=== PATIENT | female | born 1970 | race Caucasian/White ===

== ENCOUNTER → 2016-09-28 | Outpatient (CLI) | payer OTHER ==
[~2016-09-28] MED LIST: ISOVUE-M 300 61% 15ML VIAL (Q9967) As Ordered ONE; LIDOCAINE 1% SDV INJ 30 ML VIAL As Ordered ONE; methylPREDNISolone SUSP 40 MG/ML (DEPO-medrol) VIAL (J1030) As Ordered ONE
--- NOTE | 2016-09-28 17:37 | REP ---
FLUOROSCOPIC GUIDED SPINAL INJECTION: The films were reviewed with Dr. Schaeffer. The patient has a history of neck pain. The portable C-ARM was provided in the OR by Dr. Saul for fluoroscopic guidance. 3 intraoperative fluoroscopic spot films were obtained for needle placement verification for cervical epidural injection. The films are on the PACS system and are available for review. 28 seconds of fluoroscopic time was utilized for this procedure. Reviewed by ASHLEY Espinosa 09/29/2016 09:07 AEdited and Signed by Brannon Schaeffer MD 09/29/2016 03:18 P
--- NOTE | 2016-10-04 00:19 | ECWPNPC ---
PATIENT NAME: LAMINE ARENAS : 1970 GENDER: FEMALE VISIT DATE: 09/28/2016 DISCHARGE DATE: 09/28/16 1446 VISIT LOCKED DATE TIME: PHYSICIAN: NAVEEN WILLIAMSON RESOURCE: NAVEEN WILLIAMSON REASON FOR APPOINTMENT 1. CE HISTORY OF PRESENT ILLNESS HISTORY OF PRESENT ILLNESS: PAIN THE PATIENT DESCRIBES THE PAIN... FALL RISK SCREENING: SCREENING :NO FALLS IN THE PAST YEAR CURRENT MEDICATIONS TAKING ZONISAMIDE 150 MG CAPSULE (PRIOR AUTH: RX REF#:[id number]) ORAL DAILY AT BEDTIME, NOTES: 09/27/162099 TAKING OMEPRAZOLE 40 MG CAPSULE DELAYED RELEASE (PRIOR AUTH: RX REF#:[id number]) ORAL ONCE A DAY, NOTES: 09/28/16729 TAKING MONTELUKAST SODIUM 10 MG TABLET (PRIOR AUTH: RX REF#:[id number]) ORAL ONCE A DAY, NOTES: 09/27/162099 TAKING SERTRALINE HCL 50 MG TABLET (PRIOR AUTH: RX REF#:[id number]) ORAL ONCE A DAY, NOTES: 09/28/16729 TAKING ALBUTEROL SULFATE (2.5 MG/3ML) 0.083% NEBULIZATION SOLUTION (PRIOR AUTH: RX REF#:[id number]) INHALATION 2 PUFFS WHEN NEEDED, NOTES: NONE TAKING PHENTERMINE HCL 30 MG CAPSULE 1 CAPSULE ORALLY ONCE A DAY, NOTES: 09/28/16729 TAKING MAXALT 10 MG TABLET 1 TABLET NEEDED ONE TIME ORALLY ONCE A DAY, NOTES: NONE TAKING ALBUTEROL SULFATE HFA AEROSOL SOLUTION 2 PUFFS NEEDED INHALATION PRN, NOTES: NONE MEDICATION LIST REVIEWED AND RECONCILED WITH THE PATIENT PAST MEDICAL HISTORY 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 NEW PATIENT PAIN DIARY TODAY'S VISITNOTES FROM 0-10, WHAT LEVEL IS YOUR PAIN TODAY?0 PAIN CLINIC PFS, CLERGY, PUBLIC HEALTH REFERRALS PFS REFERRAL NEEDED?NO CLERGY REFERRAL NEEDED?NO PUBLIC HEALTH REFERRAL NEEDED?NO WAS THE PROVIDER NOTIFIED OF ANY PERTINENT INFO?NO PFS REFERRAL NEEDED?NO CLERGY REFERRAL NEEDED?NO PUBLIC HEALTH REFERRAL NEEDED?NO WAS THE PROVIDER NOTIFIED OF ANY PERTINENT INFO?NO REVIEW OF SYSTEMS CONSTITUTIONAL: ANY CHANGE IN YOUR MEDICAL CONDITION? NO . CHILLS NO . FEVER NO . INFECTION: DO YOU HAVE NEW INFECTIONS? NO . DO YOU HAVE HISTORY OF MRSA? NO . MUSCULOSKELETAL: ANY NEW PATTERNS OF PAIN OR NUMBNESS? NO . GASTROENTEROLOGY: ANY NEW CHANGE IN BOWEL CONTROL? YES HAS NOTED LOOSE STOOLS AFTER PHYSICAL THERAPY SEESIONS X2 SESSIONS. NORMAL BOWEL PATTERN IS WEEKLY. . GENITOURINARY: ANY NEW CHANGE IN BLADDER CONTROL? NO . IS THERE A CHANCE YOU COULD BE ? NO . HEMATOLOGY/LYMPH: DO YOU TAKE ANY BLOOD THINNERS? (FOR EXAMPLE- COUMADIN, PLAVIX, AGGRENOX, PLATEL, PRADAXA, OR XARELTO) NO . WHEN WAS YOUR LAST DOSE? DATE: TIME: . NEUROLOGY: HAVE YOU FALLEN IN THE PAST 6 MONTHS? NO . ANY NEW EXTREMITY NUMBNESS OR WEAKNESS? NO . CARDIOLOGY: DO YOU HAVE A PACEMAKER OR DEFIBRILLATOR? NO . RESPIRATORY: HAVE YOU BEEN SICK IN THE PAST WEEK? NO . FEVER NO . FLU LIKE SYMPTOMS? NO . COUGH NO . INTEGUMENTARY: DO YOU HAVE ANY RASHES OR OPEN SORES? NO . ALLERGIC/IMMUNO: ARE YOU ALLERGIC TO SHELLFISH OR IV DYE? NO . ANY NEW ALLERGIES? NO . PSYCHIATRIC: DO YOU HAVE THOUGHTS OF HURTING YOURSELF OR SOMEONE ELSE? NO . ARE YOU ABUSED, NEGLECTED, OR IN AN UNSAFE ENVIRONMENT? NO . ENDOCRINOLOGY: ARE YOU DIABETIC? NO . OTHER: DO YOU NEED ANY PRESCRIPTIONS? NO . IF YES, PLEASE LIST: ____ . ANY NEW PROBLEMS WITH YOUR MEDICATIONS? NO . WHEN DID YOU LAST EAT? ____09/27/16 1930 . WHEN DID YOU LAST DRINK? ____09/28/16 0730 . WHAT DID YOU LAST DRINK? ____WATER/SIP OF COFFEE . NAME OF PERSON DRIVING YOU HOME? ____RANDY . DO YOU HAVE ANY OTHER QUESTIONS OR CONCERNS NO . REVIEWED BY: PROVIDER: . VITAL SIGNS WT 157 LBS, HT 59 IN, BMI 31.71 INDEX, BP 139/89 MM HG, HR 93 /MIN, RR 16 /MIN, TEMP 96.7 F, OXYGEN SAT % 98, NA INITIALS TL 1256, REVIEWED BY: MLF. ASSESSMENTS CERVICAL DISC DISORDER WITH RADICULOPATHY, CERVICOTHORACIC REGION - M50.13 (PRIMARY) PROCEDURES PN CERVICAL EPIDURAL PRE PROCEDURE DIAGNOSIS CERVICAL DISC DISORDER WITH RADICULOPATHY POST PROCEDURE DIAGNOSIS CERVICAL DISC DISORDER WITH RADICULOPATHY PROCEDURE CERVICAL EPIDURAL STEROID INJECTION UNDER FLUOROSCOPIC GUIDANCE SURGEON DR. NAVEEN WILLIAMSON GRADE TAMPER NONE ANESTHESIA LOCAL PRE PROCEDURE NOTE THE PATIENT HAS A HISTORY OF CHRONIC CERVICAL PAIN. I EVALUATE THE PATIENT AND REVIEWED THE CHART. I WENT OVER THE RISKS, ALTERNATIVES, AND BENEFITS ASSOCIATED WITH THIS PROCEDURE. THE PATIENT WOULD LIKE TO PROCEED AND GIVE CONSENT TO PERFORMED THE PROCEDURE. THE PATIENT DENIES UNEXPLAINABLE WEIGHT LOSS, FEVER, CHILLS, OR NEW CHANGES IN URINARY OR BOWEL CONTROL DESCRIPTION OF PROCEDURE THE PATIENT WAS BROUGHT TO THE PROCEDURE ROOM AND PLACED IN THE PRONE POSITION. THE CERVICOTHORACIC AREA WAS CLEANED WITH BETADINE SOLUTION AND DRAPED ASEPTICALLY. THE PROCEDURE WAS DONE UNDER STERILE CONDITIONS. I CHECKED LATERALITY AND THE LEVEL WHERE THE PROCEDURE WAS GOING TO BE PERFORMED WITH THE PATIENT AND THE SUPPORTING STAFF AT THE MOMENT OF THE TIME OUT IN THE PROCEDURE ROOM. UNDER FLUOROSCOPIC GUIDANCE, THE TARGET WAS SELECTED AT THE INTERLAMINAR LEVEL OF C7-T1. LIDOCAINE WAS USED TO NUMB THE SKIN AND THE SUBCUTANEOUS TISSUE BELOW IT. EPIDURAL TUOHY NEEDLE 17-GAUGE WAS ADVANCED UNDER FLUOROSCOPIC GUIDANCE AND FOLLOWING PATIENT FEEDBACK UNTIL THE EPIDURAL SPACE WAS REACHED 6 CM DEEP INTO THE SKIN BY THE LOSS OF RESISTANCE TECHNIQUE. ISOVUE M DYE 30%, 0.25 ML, WAS INJECTED SHOWING ADEQUATE SPREAD OF THE DYE. THEN, A SOLUTION OF 3 ML OF NORMAL SALINE WITH DEPO-MEDROL 60 MG WAS INJECTED SLOWLY FOLLOWING PATIENT FEEDBACK. THERE WAS NO EVIDENCE OF BLOOD, PARESTHESIA OR CEREBROSPINAL FLUID DURING THE PROCEDURE. THE PATIENT WAS SENT TO THE RECOVERY ROOM. THE PATIENT WAS MOVING THE EXTREMITIES AND DOING WELL. THERE WAS NO COMPLICATION DURING THE PROCEDURE. FLUOROSCOPY TIME WAS 28 SECONDS POST PROCEDURE NOTE THE PATIENT WILL BE SEEN IN A FOLLOW UP IN THE NEXT FEW WEEKS. INSTRUCTIONS WERE GIVEN, QUESTIONS WERE ANSWERED, AND THE PATIENT EXPRESSED UNDERSTANDING AND AGREES WITH THE PLAN DIAGNOSTIC IMAGING [facility] FLUORO GUIDE SPINE INJECTION (PAIN)[id number] PROCEDURE CODES 49849 CERVICAL/THORACIC W/ IMAGING 6045F RADXPS IN END [id number] PXD FOLLOW UP 3 WEEKS ELECTRONICALLY SIGNED BY NAVEEN WILLIAMSON MD ON 10/03/2016 AT 01:33 PM EST DISCLAIMER : THIS IS A VISIT SUMMARY EXTRACTED FROM THE [employer] CHART. IT IS NOT A COPY OF THE [employer] PROGRESS NOTE. LORELEI
== END ==
LOC: M PAIN 13:20
PROVIDERS: ATTEND Anesthesiology
DX: M50.13 Cervical disc disorder with radiculopathy, cervicothoracic region (principal); G89.29 Other chronic pain; Z79.899 Other long term (current) drug therapy; Z91.018 Allergy to other foods
CPT/HCPCS: 62321; J1030; Q9967

== ENCOUNTER → 2016-10-25 | Outpatient (CLI) | payer OTHER ==
--- NOTE | 2016-10-25 23:36 | ECWPNPC ---
PATIENT NAME: LAMINE ARENAS : 1970 GENDER: FEMALE VISIT DATE: 10/25/2016 DISCHARGE DATE: 10/25/16934 VISIT LOCKED DATE TIME: PHYSICIAN: AMINA PARKER RESOURCE: AMINA PARKER REASON FOR APPOINTMENT 1. POST PROCEDURE-NECK HISTORY OF PRESENT ILLNESS HISTORY OF PRESENT ILLNESS: PAIN THE PATIENT DESCRIBES THE PAIN... HERE FOR POST PROCEDURE F/U.HAD GATITO ON 09-28-16.REPORTS SIGNIFICANT REDUCTION IN PAIN.REPORTING IMPROVED ROJM NECK AND IMPROVED SLEEP SINCE INJECTIONS.RATING PAIN VAS 2/10.USES MUSCLE RELAXER PRN AT NIGHT BUT HAS NOT NEEDED.ATTENDING PT 2X WK AND NOW IS DOING STRENGTHENING EXCERSISES FOR LBP.HAVING DIFFICULTY AFFORDING COPAYS. FALL RISK SCREENING: SCREENING :NO FALLS IN THE PAST YEAR CURRENT MEDICATIONS TAKING ZONISAMIDE 150 MG CAPSULE (PRIOR AUTH: RX REF#:[id number]) ORAL DAILY AT BEDTIME, NOTES: 09/27/162099 TAKING OMEPRAZOLE 40 MG CAPSULE DELAYED RELEASE (PRIOR AUTH: RX REF#:[id number]) ORAL ONCE A DAY, NOTES: 09/28/16729 TAKING MONTELUKAST SODIUM 10 MG TABLET (PRIOR AUTH: RX REF#:[id number]) ORAL ONCE A DAY, NOTES: 09/27/162099 TAKING SERTRALINE HCL 50 MG TABLET (PRIOR AUTH: RX REF#:[id number]) ORAL ONCE A DAY, NOTES: 09/28/16729 TAKING ALBUTEROL SULFATE (2.5 MG/3ML) 0.083% NEBULIZATION SOLUTION (PRIOR AUTH: RX REF#:[id number]) INHALATION 2 PUFFS WHEN NEEDED, NOTES: NONE TAKING PHENTERMINE HCL 30 MG CAPSULE 1 CAPSULE ORALLY ONCE A DAY, NOTES: 09/28/16729 TAKING MAXALT 10 MG TABLET 1 TABLET NEEDED ONE TIME ORALLY ONCE A DAY, NOTES: NONE TAKING ALBUTEROL SULFATE HFA AEROSOL SOLUTION 2 PUFFS NEEDED INHALATION PRN, NOTES: NONE MEDICATION LIST REVIEWED AND RECONCILED WITH THE PATIENT PAST MEDICAL HISTORY 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 NEW PATIENT PAIN DIARY TODAY'S VISITNOTES FROM 0-10, WHAT LEVEL IS YOUR PAIN TODAY?0 PAIN CLINIC PFS, CLERGY, PUBLIC HEALTH REFERRALS PFS REFERRAL NEEDED?NO CLERGY REFERRAL NEEDED?NO PUBLIC HEALTH REFERRAL NEEDED?NO WAS THE PROVIDER NOTIFIED OF ANY PERTINENT INFO?NO PFS REFERRAL NEEDED?NO CLERGY REFERRAL NEEDED?NO PUBLIC HEALTH REFERRAL NEEDED?NO WAS THE PROVIDER NOTIFIED OF ANY PERTINENT INFO?NO REVIEW OF SYSTEMS CONSTITUTIONAL: ANY CHANGE IN YOUR MEDICAL CONDITION? NO . CHILLS NO . FEVER NO . INFECTION: DO YOU HAVE NEW INFECTIONS? NO . DO YOU HAVE HISTORY OF MRSA? NO . MUSCULOSKELETAL: ANY NEW PATTERNS OF PAIN OR NUMBNESS? NO . GASTROENTEROLOGY: ANY NEW CHANGE IN BOWEL CONTROL? YES, USE TO BE ONCE OR TWICE WEEKLY, NOW SINCE THERAPY HAS A BM WITH EACH THERAPY SESSION. . GENITOURINARY: ANY NEW CHANGE IN BLADDER CONTROL? NO . IS THERE A CHANCE YOU COULD BE ? NO . HEMATOLOGY/LYMPH: DO YOU TAKE ANY BLOOD THINNERS? (FOR EXAMPLE- COUMADIN, PLAVIX, AGGRENOX, PLATEL, PRADAXA, OR XARELTO) NO . WHEN WAS YOUR LAST DOSE? DATE: TIME: . NEUROLOGY: HAVE YOU FALLEN IN THE PAST 6 MONTHS? NO . ANY NEW EXTREMITY NUMBNESS OR WEAKNESS? NO . CARDIOLOGY: DO YOU HAVE A PACEMAKER OR DEFIBRILLATOR? NO . RESPIRATORY: HAVE YOU BEEN SICK IN THE PAST WEEK? NO . FEVER NO . FLU LIKE SYMPTOMS? NO . COUGH NO . INTEGUMENTARY: DO YOU HAVE ANY RASHES OR OPEN SORES? NO . ALLERGIC/IMMUNO: ARE YOU ALLERGIC TO SHELLFISH OR IV DYE? NO . ANY NEW ALLERGIES? NO . PSYCHIATRIC: DO YOU HAVE THOUGHTS OF HURTING YOURSELF OR SOMEONE ELSE? NO . ARE YOU ABUSED, NEGLECTED, OR IN AN UNSAFE ENVIRONMENT? NO . ENDOCRINOLOGY: ARE YOU DIABETIC? NO . OTHER: DO YOU NEED ANY PRESCRIPTIONS? NO . IF YES, PLEASE LIST: ____ . ANY NEW PROBLEMS WITH YOUR MEDICATIONS? NO . WHEN DID YOU LAST EAT? ____ . WHEN DID YOU LAST DRINK? ____ . WHAT DID YOU LAST DRINK? ____ . NAME OF PERSON DRIVING YOU HOME? ____ . DO YOU HAVE ANY OTHER QUESTIONS OR CONCERNS YES, COULD SHE GET A SEAT CUSHION RX? MAYBE A PAIN PATCH FOR BACK & NECK? DOES SHE STILL NEED TO KEEP DOING THERAPY? . REVIEWED BY: PROVIDER: AMINA DELACRUZ . VITAL SIGNS WT 154 LBS, HT 59 IN, BMI 31.10 INDEX, BP 139/89 MM HG, HR 103 /MIN, RR 16 /MIN, TEMP 98.0 F, OXYGEN SAT % 98%, NA INITIALS SC 08:51, REVIEWED BY: CM. EXAMINATION CERVICAL SPINE/NECK: RANGE OF MOTION OF NECK:FULL W REPORTS OF STIFFNESS AND DISCOMFORT W FLEXION AND EXTENSION OF NECK.. REFLEXES:2 PLUS BILATERALLY. VERTEBRAL SPINE TENDERNESS:TENDERNESS W PALPATION OVER CERVICAL SPINE AND CERVICAL PARASPINALS.. DIAGNOSTIC DATA-MRI [id number] SIZE DISC HERNIATION AT C3/4-RIGHT CENTRAL.THORACIC [id number]-REVIEWED. ASSESSMENTS CERVICAL DISC DISPLACEMENT - M50.20 (PRIMARY) LOW BACK PAIN - M54.5 LUMBAR FACET ARTHROPATHY - M12.88 TREATMENT CERVICAL DISC DISPLACEMENT START IBUPROFEN TABLET, 200 MG, 3, ORALLY, 3TAB BID, 30 DAY(S) CLINICAL NOTES: OTC TYLENOL ARTHRITIS 650MG 2TAB MIDDAY. TOPICAL ASPERCREME W LIDOCAINE TWICE DAILY., PATIENT WAS ADVISED TO START A WALKING PROGRAM TO STRENGTHEN LUMBAR PARASPINAL MUSCLES AND IMPROVE MOBILITY. THEY WERE ADVISED THAT THIS WILL IMPROVE WEIGHT LOSS AND ALSO DEPRESSION/FIBROMYALGIA SYMPTOMS. ADVISED TO WALK 10 MINUTES EVERY OTHER DAY ON A FLAT SURFACE. EMPHASIZED THE IMPORTANCE OF DOING THIS CONSISTANTLY AND NOT SPORATICALLY TO AVOID INJURY. STRONG ADVISED NOT TO DO MORE THAN 10 MINUTES EVERY OTHER DSY FOR THE FIRST 4 WEEKS. PROCEDURE CODES FA211 ESTABILISHED PATIENT [facility] CHARGE FOLLOW UP 6 WEEKS ELECTRONICALLY SIGNED BY NUBIA FRANCE ON 10/25/2016 AT 11:05 AM EST DISCLAIMER : THIS IS A VISIT SUMMARY EXTRACTED FROM THE [employer] CHART. IT IS NOT A COPY OF THE [employer] PROGRESS NOTE. LORELEI
== END ==
LOC: M PAIN 08:40
PROVIDERS: ATTEND Nurse Practitioner Family
DX: M50.20 Other cervical disc displacement, unspecified cervical region (principal); M54.5 Low back pain; M12.88 Other specific arthropathies, not elsewhere classified, other specified site; Z79.899 Other long term (current) drug therapy; K21.9 Gastro-esophageal reflux disease without esophagitis; J45.909 Unspecified asthma, uncomplicated; Z91.09 Other allergy status, other than to drugs and biological substances; Z91.018 Allergy to other foods

== ENCOUNTER 2017-05-04 09:41 | Emergency (ER) | payer OTHER ==
[~2017-05-04] VITALS: Ht 149.9 cm; Wt 71.7 kg
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
[2017-05-04] MEDS ORDERED: MOBI4TAB PO (11:20)
[2017-05-04 12:00] VITALS: BP 144/89
== END 2017-05-04 12:00 | disposition home or self-care (01) ==
LOC: M ED 09:41
DX: S50.11XA Contusion of right forearm, initial encounter (principal); Y04.2XXA Assault by strike against or bumped into by another person, initial encounter; Y92.89 Other specified places as the place of occurrence of the external cause; Y93.89 Activity, other specified; Y99.0 Civilian activity done for income or pay

== ENCOUNTER 2017-06-08 11:23 | Emergency (ER) | payer OTHER ==
[~2017-06-08] VITALS: Ht 149.9 cm; Wt 2.2 kg
[~2017-06-08 11:23] MED LIST changes: -ISOVUE-M 300 61% 15ML VIAL (Q9967) As Ordered ONE; -LIDOCAINE 1% SDV INJ 30 ML VIAL As Ordered ONE; +MOBI4TAB PO; -methylPREDNISolone SUSP 40 MG/ML (DEPO-medrol) VIAL (J1030) As Ordered ONE
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
[2017-06-08] MEDS ORDERED: CYCL10TA PO (12:51)
[2017-06-08] MEDS ORDERED: HYDR-3713 PO (12:51)
[2017-06-08 13:06] VITALS: BP 129/79
== END 2017-06-08 13:07 | disposition home or self-care (01) ==
LOC: M ED 11:23
DX: M54.12 Radiculopathy, cervical region (principal); S90.01XD Contusion of right ankle, subsequent encounter; Z87.891 Personal history of nicotine dependence; Y04.0XXD Assault by unarmed brawl or fight, subsequent encounter; Y92.89 Other specified places as the place of occurrence of the external cause; Y93.89 Activity, other specified; Y99.0 Civilian activity done for income or pay

== ENCOUNTER → 2017-06-16 | Outpatient (CLI) | payer OTHER ==
[~2017-06-16] MED LIST changes: +CYCL10TA PO; +HYDR-3713 PO
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
== END ==
LOC: M PAIN 13:45
PROVIDERS: ATTEND Nurse Practitioner Family
DX: M50.20 Other cervical disc displacement, unspecified cervical region (principal); J45.909 Unspecified asthma, uncomplicated; K21.9 Gastro-esophageal reflux disease without esophagitis; R35.0 Frequency of micturition; Z79.891 Long term (current) use of opiate analgesic; Z79.899 Other long term (current) drug therapy; Z91.018 Allergy to other foods

== ENCOUNTER → 2017-08-25 | Outpatient (CLI) | payer BC ==
[2017-08-25 07:00] LABS: BASO % 0.7 % (0.0-1.0); EOS # 0.2 10^3/uL (0.0-0.50); EOS % 4.2 % (0.0-3.0); IMMATURE GRANULOCYTE % 0.2 % (0-0); LYMPH # 2.4 10^3/uL (1.5-4.5); LYMPH % 43.4 % (24.0-44.0); MEAN CORPUSCULAR HGB CONC 33.1 g/dl (32.0-36.5); MEAN CORPUSCULAR VOLUME 87.6 fl (80.0-96.0); MONO # 0.4 10^3/uL (0.0-0.8); MONO % 6.8 % (0.0-5.0); NEUTROPHILS # 2.4 10^3/uL (1.8-7.7); NEUTROPHILS % 44.7 % (36.0-66.0); PLATELET COUNT, AUTOMATED 264 10^3/uL (150-450); RED CELL DISTRIBUTION WIDTH 12.8 % (11.5-14.5); WHITE BLOOD COUNT 5.4 10^3/uL (4.0-10.0)
[2017-08-25 07:36] LABS: ALBUMIN/GLOBULIN RATIO 1.11 (1.00-1.93); ALKALINE PHOSPHATASE 82 U/L (45-117); ALT/SGPT 26 U/L (12-78); ANION GAP 5 MEQ/L (8-16); AST/SGOT 15 U/L (7-37); BILIRUBIN,TOTAL 0.9 MG/DL (0.2-1.0); BLOOD UREA NITROGEN 14 MG/DL (7-18); CALCIUM LEVEL 9.1 MG/DL (8.5-10.1); CARBON DIOXIDE LEVEL 29 MEQ/L (21-32); CHLORIDE LEVEL 110 MEQ/L (98-107); CHOLESTEROL LEVEL 225 MG/DL (<200); CREATININE FOR GFR 0.63 MG/DL (0.55-1.02); GLOMERULAR FILTRATION RATE > 60.0 (>58); GLUCOSE, FASTING 97 MG/DL (70-105); POTASSIUM SERUM 4.3 MEQ/L (3.5-5.1); SODIUM LEVEL 144 MEQ/L (136-145); TOTAL PROTEIN 7.6 GM/DL (6.4-8.2); TRIGLYCERIDES LEVEL 78 MG/DL (<150)
== END ==
LOC: M LAB 06:27
PROVIDERS: ATTEND Nurse Practitioner Family
DX: F34.1 Dysthymic disorder (principal); Z13.220 Encounter for screening for lipoid disorders

== ENCOUNTER 2017-12-07 08:11 | Day surgery (SDC) | payer BC ==
[2017-12-07] MEDS: CEFUROXIME 1MG/0.1ML INTRACAMERAL INJ As Ordered (06:42)
[~2017-12-07 08:11] MED LIST changes: -CYCL10TA PO; -HYDR-3713 PO; +MIDAZOLAM INJ 2 MG/2 ML VIAL (J2250) As Ordered; -MOBI4TAB PO; +fentaNYL 100 MCG/2 ML INJECTION (J3010) As Ordered
[2017-12-07] MEDS ORDERED: LIDOCAINE 1% MDV 20ML VIAL SQ (08:30)
[2017-12-07] MEDS: PROPARACAINE 0.5% OPHTH SOL 15ML OS (08:38)
[2017-12-07] MEDS: PHENYLEPHRINE 2.5% OPHTH SOL 2ML OS (08:39)
[2017-12-07] MEDS: TROPICAMIDE 1% OPHTH SOLN 2ML OS (08:39)
[2017-12-07] MEDS: OFLOXACIN 0.3 % (OCUFLOX) OPTH SOL 5ML OS (08:39)
[2017-12-07] MEDS: POVIDONE-IODINE 5% OPHTH PREP SOL 30ML As Ordered (10:10)
[2017-12-07] MEDS: LIDOCAINE 0.75%/EPINEPHRINE 0.025% IN BSS 1ML SYR INTRACAMERAL (OR ONLY) As Ordered (10:10)
[2017-12-07] MEDS: DUOVISC (0.50ML VISCOAT/0.55ML PROVISC) OPHTH KIT As Ordered (10:10)
[2017-12-07] MEDS: BALANCED SALT IRRIGATION SOLUTION 500ML BAG (FOR OR EYE MACHINE) As Ordered (10:10)
[2017-12-07] MEDS ORDERED: ONDANSETRON 4MG/2ML VIAL (J2405) IV (10:45)
== END 2017-12-07 10:45 | disposition home or self-care (01) ==
LOC: M SDC 08:11
DX: H25.12 Age-related nuclear cataract, left eye (principal); H52.212 Irregular astigmatism, left eye; J45.909 Unspecified asthma, uncomplicated; K21.9 Gastro-esophageal reflux disease without esophagitis; Z92.21 Personal history of antineoplastic chemotherapy; Z79.51 Long term (current) use of inhaled steroids; Z79.899 Other long term (current) drug therapy
CPT/HCPCS: 66984

== ENCOUNTER → 2018-02-14 | Outpatient (CLI) | payer BC | LOC: M SLEEP HO 11:13 | DX: R40.0 Somnolence (principal); R06.83 Snoring; R06.89 Other abnormalities of breathing | CPT/HCPCS: G0399 ==

== ENCOUNTER → 2018-05-14 | Outpatient (CLI) | payer BC ==
[2018-05-14 08:35] LABS: GLUCOSE, FASTING 90 MG/DL (70-100)
[2018-05-14 09:29] LABS: 1 HR GLUCOSE 112 MG/DL (LESS THAN 199)
[2018-05-14 10:26] LABS: 2 HR GLUCOSE 100 MG/DL (LESS THAN 140)
== END ==
LOC: M LAB 07:50
DX: Z01.812 Encounter for preprocedural laboratory examination (principal); E66.01 Morbid (severe) obesity due to excess calories; Z68.42 Body mass index [BMI] 45.0-49.9, adult
CPT/HCPCS: 82951

== ENCOUNTER → 2018-08-29 | Outpatient (CLI) | payer BC ==
[2018-08-29 14:26] LABS: BASO % 0.6 % (0.0-1.0); EOS # 0.3 10^3/uL (0.0-0.50); HEMATOCRIT 37.8 % (36.0-47.0); HEMOGLOBIN 12.2 g/dl (12.0-15.5); IMMATURE GRANULOCYTE % 0.2 % (0-3.0); LYMPH # 2.4 10^3/uL (1.5-4.5); LYMPH % 39.3 % (24.0-44.0); MEAN CORPUSCULAR HEMOGLOBIN 28.9 pg (27.0-33.0); MEAN CORPUSCULAR HGB CONC 32.3 g/dl (32.0-36.5); MEAN CORPUSCULAR VOLUME 89.6 fl (80.0-96.0); MONO # 0.6 10^3/uL (0.0-0.8); MONO % 9.5 % (0.0-5.0); NEUTROPHILS # 2.9 10^3/uL (1.8-7.7); NEUTROPHILS % 46.4 % (36.0-66.0); PLATELET COUNT, AUTOMATED 224 10^3/uL (150-450); RED BLOOD COUNT 4.22 10^6/uL (4.00-5.40); RED CELL DISTRIBUTION WIDTH 14.1 % (11.5-14.5); WHITE BLOOD COUNT 6.2 10^3/uL (4.0-10.0)
[2018-08-29 14:30] LABS: HEMATOCRIT 37.8 % (36.0-47.0)
[2018-08-29 15:19] LABS: ALBUMIN 4.1 GM/DL (3.2-5.2); ALBUMIN/GLOBULIN RATIO 1.32 (1.00-1.93); ALKALINE PHOSPHATASE 87 U/L (45-117); ALT/SGPT 23 U/L (12-78); ANION GAP 8 MEQ/L (8-16); AST/SGOT 18 U/L (7-37); BILIRUBIN,TOTAL 0.7 MG/DL (0.2-1.0); BLOOD UREA NITROGEN 10 MG/DL (7-18); CARBON DIOXIDE LEVEL 28 MEQ/L (21-32); CHLORIDE LEVEL 107 MEQ/L (98-107); CREATININE FOR GFR 0.44 MG/DL (0.55-1.30); FERRITIN 28 NG/ML (8-252); GLOMERULAR FILTRATION RATE > 60.0 (>58); GLUCOSE, FASTING 80 MG/DL (70-100); IRON (FE) 42 UG/DL (50-170); MAGNESIUM LEVEL 1.8 MG/DL (1.8-2.4); PERCENT SATURATION 13.6 % (13.2-45.0); PHOSPHORUS LEVEL 2.5 MG/DL (2.5-4.9); POTASSIUM SERUM 4.3 MEQ/L (3.5-5.1); SODIUM LEVEL 143 MEQ/L (136-145); TOTAL IRON BINDING CAPACITY 308 UG/DL (250-450); TOTAL PROTEIN 7.2 GM/DL (6.4-8.2)
[2018-08-29 15:27] LABS: TOTAL 25(OH) VITAMIN D 37.6 NG/ML (30.0-100.0); VITAMIN B12 LEVEL 1544 PG/ML (247-911)
[2018-08-29 16:06] LABS: ESTIMATED AVERAGE GLUCOSE 97 MG/DL (60-110)
[2018-08-31 11:28] LABS: PRETREATED FOLATE FOR RBCFOL 11.2 NG/ML; RBC FOLATE 622 NG/ML (280-791)
[2018-09-02 00:06] LABS: VITAMIN B1 LEVEL WHOLE BLOOD 103.9 nmol/L (66.5-200.0)
== END ==
LOC: M LAB 13:38
DX: K91.2 Postsurgical malabsorption, not elsewhere classified (principal); E55.9 Vitamin D deficiency, unspecified; Z98.84 Bariatric surgery status
CPT/HCPCS: 83550

== ENCOUNTER 2018-10-08 09:25 | Emergency (ER) | payer BC, SELFPAY ==
[~2018-10-08] VITALS: Ht 149.9 cm; Wt 63.6 kg
[~2018-10-08 09:25] MED LIST changes: +AMOX875T2 PO; +BIOT10008 PO; +CYCL10TA PO; +GABA-843 PO; +HYDR-3713 PO; -MIDAZOLAM INJ 2 MG/2 ML VIAL (J2250) As Ordered; +MOBI4TAB PO; +MULT1TAB10 PO; +OMEP40CA2 PO; +RIZA10TA2 PO; +SING10TA32 PO; +TIZA4CAP PO; +VENTAER INH; +VITA100L PO; +VITA400C7 PO; +ZOLO50TA PO; +ZONI100C2 PO; -fentaNYL 100 MCG/2 ML INJECTION (J3010) As Ordered
[2018-10-08] MEDS ORDERED: SIMV40TA2 PO (09:38)
[2018-10-08] MEDS ORDERED: FAMO1TAB11 PO (09:38)
[2018-10-08 09:59] LABS: BASO # 0.1 10^3/uL (0.0-0.2); BASO % 0.5 % (0.0-1.0); EOS # 0.2 10^3/uL (0.0-0.50); EOS % 1.8 % (0.0-3.0); HEMATOCRIT 43.9 % (36.0-47.0); HEMOGLOBIN 14.2 g/dl (12.0-15.5); LYMPH % 22.8 % (24.0-44.0); MEAN CORPUSCULAR HGB CONC 32.3 g/dl (32.0-36.5); MEAN CORPUSCULAR VOLUME 89.6 fl (80.0-96.0); MONO # 0.7 10^3/uL (0.0-0.8); MONO % 5.1 % (0.0-5.0); NEUTROPHILS # 9.2 10^3/uL (1.8-7.7); NEUTROPHILS % 69.5 % (36.0-66.0); PLATELET COUNT, AUTOMATED 260 10^3/uL (150-450); WHITE BLOOD COUNT 13.2 10^3/uL (4.0-10.0)
[2018-10-08 10:12] LABS: INR 1.03; PROTHROMBIN TIME 13.6 SECONDS (12.1-14.4)
[2018-10-08 10:29] LABS: ALBUMIN 4.1 GM/DL (3.2-5.2); ALT/SGPT 26 U/L (12-78); BILIRUBIN,DIRECT 0.2 MG/DL (0.0-0.2); BILIRUBIN,TOTAL 0.9 MG/DL (0.2-1.0); BLOOD UREA NITROGEN 10 MG/DL (7-18); CALCIUM LEVEL 9.7 MG/DL (8.5-10.1); CARBON DIOXIDE LEVEL 26 MEQ/L (21-32); CHLORIDE LEVEL 101 MEQ/L (98-107); CREATININE FOR GFR 0.43 MG/DL (0.55-1.30); GLOMERULAR FILTRATION RATE > 60.0 (>58); GLUCOSE, FASTING 135 MG/DL (70-100); LIPASE 80 U/L (73-393); POTASSIUM SERUM 3.5 MEQ/L (3.5-5.1); SODIUM LEVEL 141 MEQ/L (136-145); TOTAL PROTEIN 7.5 GM/DL (6.4-8.2)
[2018-10-08] MEDS ORDERED: MORPHINE 2 MG/ML 1ML SYRINGE (J2270) IV ONE (10:30)
[2018-10-08] MEDS ORDERED: METOCLOPRAMIDE INJ 10MG/2ML VIAL (J2765) IV ONE (10:30)
[2018-10-08] MEDS ORDERED: NS 1,000 ML IV ONE ×2 (11:00→15:15)
[2018-10-08] MEDS ORDERED: ONDANSETRON 4MG/2ML VIAL (J2405) IV ONE ×2 (11:00→16:45)
[2018-10-08] MEDS: MORPHINE 4 MG/ML 1ML VIAL/SYRINGE (J2270) IV PRN ×2 (11:17→12:05)
[2018-10-08] MEDS: GASTROGRAFIN SOLUTION 30ML PO SCH ×2 (11:32→11:45)
[2018-10-08] MEDS ORDERED: ISOVUE-370 76% 100ML VIAL (Q9967) As Ordered ONE (12:32)
[2018-10-08] MEDS: HYDROMORPHONE HCL 0.5 MG/ 0.5 ML SYRINGE (J1170 PER 1) IV PRN ×2 (12:40→13:28)
[2018-10-08] MEDS ORDERED: PIPERACILLIN/TAZOBACTAM SOD 3.375 GM in D5W MINI-BAG PLUS 50 ML IV ONE (13:00)
--- NOTE | 2018-10-08 13:52 | REP ---
CT ABDOMEN AND PELVIS WITH IV AND ORAL CONTRAST: HISTORY: Abdomen pain. COMPARISON STUDY: October 30, 2014. CT CONTRAST DOSE: 100 mL of intravenous Isovue [address] FINDINGS: Preliminary digital agency operator radiograph is unremarkable. The lung bases are clear. The liver and the spleen are normal in size homogeneous in texture. There is a small quantity of perisplenic fluid. There is one tiny air bubble in the fluid along the posterolateral aspect of the spleen. There are scattered areas of pneumoperitoneum in the upper abdomen. The largest collection of air is anterior to the left lobe of the liver. There is also a fairly large collection of air just above the proximal gastric jejunostomy under the left hemidiaphragm. The patient is status post gastric bypass procedure. By history, this was July 2018. Today's finding of free air in the upper abdomen implies a perforation, likely related to marginal ulcer or other lesion at the proximal gastric jejunostomy. The distal jejunostomy loop shows some mural thickening and adjacent inflammation as well. No free air is noted in this portion of the abdomen however. No evidence of obstruction. There is a small quantity of free fluid in the cul-de-sac. Uterus is surgically absent. Urinary bladder is unremarkable. No abdominal wall defect is seen. IMPRESSION: Moderate amount of upper abdominal free air indicates bowel perforation. The patient status post gastric bypass. The upper abdominal free air and free fluid. Pattern suggests the possibility of upper gastrointestinal perforation and possibly related to gastrojejunostomy. Findings were telephoned to Dr. Funk at the time of this dictation. Electronically Signed by Terry Grande MD 10/08/2018 08:14 P
[2018-10-08] MEDS ORDERED: NS 1,000 ML IV SCH (13:55)
[2018-10-08] MEDS ORDERED: HYDROMORPHONE HCL 0.5 MG/ 0.5 ML SYRINGE (J1170 PER 1) IV ONE ×2 (14:45→16:30)
--- NOTE | 2018-10-08 14:51 | ECGEPIP ---
Stationary ECG Study [facility] - ED Test Date: 2018-10-08 Pat Name: LAMINE ARENAS Department: Room: - Gender: F [employer] Swim Coach: phoebe : 1970 Requested By: Belen Obregon Order Number: [id number] Reading MD: Belen Obregon Measurements Intervals [place] Rate: 82 P: 59 [place]: 92 QRS: 59 QRSD: 82 T: 37 QT: 389 QTc: 456 Interpretive Statements SINUS RHYTHM WITH SHORT [place] INTERVAL NONSPECIFIC T-WAVE ABNORMALITY NO PRIOR FOR COMPARISON Electronically Signed On 10-08-2018 14:51:28 EST by Belen Obregon
[2018-10-08] MEDS ORDERED: PANTOPRAZOLE 40MG INJ (PROTONIX) (C9113) IV ONE (15:15)
[2018-10-08] MEDS ORDERED: FLUCONAZOLE 200 MG in APPROPRIATE DILUENT 1 EA IV ONE (16:00)
[2018-10-08 16:40] VITALS: BP 112/57
== END 2018-10-08 16:52 | disposition short-term general hospital (02) ==
LOC: M ED 09:25
DX: K63.1 Perforation of intestine (nontraumatic) (principal); Z98.84 Bariatric surgery status
CPT/HCPCS: 74177; 80048; 80076; 83605; 83690; 85025; 85610; 86850; 86900; 86901; 93005; 93041; 96361; 96374; 96375; 96376; 99285; C9113; J1170; J2270; J2405; J2543; J2765; Q9963; Q9967

== ENCOUNTER 2018-10-23 11:59 | Emergency (ER) | payer SELFPAY ==
[~2018-10-23] VITALS: Ht 149.9 cm; Wt 59.1 kg
[~2018-10-23 11:59] MED LIST changes: +FAMO1TAB11 PO; +SIMV40TA2 PO
[2018-10-23 12:41] LABS: BASO # 0.1 10^3/uL (0.0-0.2); BASO % 0.6 % (0.0-1.0); EOS # 0.2 10^3/uL (0.0-0.50); EOS % 2.2 % (0.0-3.0); HEMATOCRIT 42.4 % (36.0-47.0); HEMOGLOBIN 13.7 g/dl (12.0-15.5); LYMPH # 1.7 10^3/uL (1.5-4.5); LYMPH % 18.8 % (24.0-44.0); MEAN CORPUSCULAR HEMOGLOBIN 28.8 pg (27.0-33.0); MEAN CORPUSCULAR HGB CONC 32.3 g/dl (32.0-36.5); MEAN CORPUSCULAR VOLUME 89.3 fl (80.0-96.0); MONO # 0.9 10^3/uL (0.0-0.8); MONO % 9.9 % (0.0-5.0); NEUTROPHILS # 6.1 10^3/uL (1.8-7.7); NEUTROPHILS % 68.2 % (36.0-66.0); PLATELET COUNT, AUTOMATED 408 10^3/uL (150-450); RED BLOOD COUNT 4.75 10^6/uL (4.00-5.40)
[2018-10-23 13:03] LABS: INR 1.1; PARTIAL THROMBOPLASTIN TIME 28.3 SECONDS (25.4-37.6); PROTHROMBIN TIME 14.3 SECONDS (12.1-14.4)
[2018-10-23 13:07] LABS: ALBUMIN 3.4 GM/DL (3.2-5.2); ALT/SGPT 29 U/L (12-78); BILIRUBIN,DIRECT 0.1 MG/DL (0.0-0.2); BILIRUBIN,TOTAL 0.4 MG/DL (0.2-1.0); BLOOD UREA NITROGEN 12 MG/DL (7-18); CALCIUM LEVEL 9.3 MG/DL (8.5-10.1); CARBON DIOXIDE LEVEL 23 MEQ/L (21-32); CHLORIDE LEVEL 105 MEQ/L (98-107); CREATININE FOR GFR 0.45 MG/DL (0.55-1.30); GLOMERULAR FILTRATION RATE > 60.0 (>58); GLUCOSE, FASTING 89 MG/DL (70-100); LIPASE 126 U/L (73-393); POTASSIUM SERUM 3.6 MEQ/L (3.5-5.1); SODIUM LEVEL 140 MEQ/L (136-145); TOTAL PROTEIN 7.8 GM/DL (6.4-8.2)
[2018-10-23] MEDS ORDERED: NS 1,000 ML IV SCH (14:21)
[2018-10-23] MEDS ORDERED: MORPHINE 4 MG/ML 1ML VIAL/SYRINGE (J2270) IV PRN (14:30)
[2018-10-23] MEDS ORDERED: ONDANSETRON 4MG/2ML VIAL (J2405) IV ONE (14:30)
[2018-10-23] MEDS: GASTROGRAFIN SOLUTION 30ML PO SCH ×2 (14:49→15:25)
[2018-10-23] MEDS ORDERED: ISOVUE-370 76% 100ML VIAL (Q9967) As Ordered ONE (16:20)
--- NOTE | 2018-10-23 16:50 | REP ---
Clinical: Acute lower abdominal pain. Technique: Axial contrast enhanced images from the lung bases to the pubic symphysis using oral (per protocol) and 100 ml Isovue 370 intravenous contrast material with coronal and sagittal re-formations. Comparison: 10/08/2018. Findings: The patient is noted to be status post gastric bypass surgery and the previously identified pneumoperitoneum has completely resolved. Mucosal thickening involving the entire colon suggests a pancolitis. There is no evidence for bowel obstruction, significant ascites, or drainable collection/abscess. Terminal ileum and small bowel appears normal. Evidence for gastric bypass surgery in the left upper quadrant appears intact. Liver, spleen, pancreas, gallbladder, bilateral adrenal glands and kidneys are normal. Pelvis demonstrates normal bladder and evidence of prior hysterectomy. No ascites. No free air. No adenopathy. Abdominal aorta without aneurysm or dissection. Musculoskeletal structures are intact. Lung bases are clear. Impression: 1. Findings most compatible with acute pancolitis and correlation is recommended. 2. Previously identified pneumoperitoneum has resolved. 3. Evidence of prior gastric bypass surgery and hysterectomy. Electronically Signed by Paolo Floyd MD 10/23/2018 04:41 P
[2018-10-23 19:00] VITALS: BP 108/78
[2018-10-23] MEDS ORDERED: FLAG500T PO (19:09)
[2018-10-23] MEDS ORDERED: metroNIDAZOLE (FLAGYL) 500 MG TAB PO ONE (20:00)
== END 2018-10-23 19:26 | disposition home or self-care (01) ==
LOC: M ED 11:59
DX: A04.72 Enterocolitis due to Clostridium difficile, not specified as recurrent (principal); J45.909 Unspecified asthma, uncomplicated; K21.9 Gastro-esophageal reflux disease without esophagitis; E78.5 Hyperlipidemia, unspecified; Z98.84 Bariatric surgery status
CPT/HCPCS: 74177; 80048; 80076; 81001; 83690; 85025; 85610; 85730; 86850; 86900; 86901; 87088; 87186; 87507; 93041; 96374; 96375; 99285; J2270; J2405; Q9963; Q9967

== ENCOUNTER → 2018-11-16 | Outpatient (CLI) | payer BC ==
[~2018-11-16] MED LIST changes: +FLAG500T PO
[2018-11-16 12:59] LABS: BASO # 0.1 10^3/uL (0.0-0.2); BASO % 0.7 % (0.0-1.0); EOS # 0.2 10^3/uL (0.0-0.50); EOS % 2.1 % (0.0-3.0); HEMATOCRIT 38.9 % (36.0-47.0); HEMOGLOBIN 12.4 g/dl (12.0-15.5); LYMPH # 2.3 10^3/uL (1.5-4.5); LYMPH % 26.3 % (24.0-44.0); MEAN CORPUSCULAR HEMOGLOBIN 28.2 pg (27.0-33.0); MEAN CORPUSCULAR HGB CONC 31.9 g/dl (32.0-36.5); MEAN CORPUSCULAR VOLUME 88.6 fl (80.0-96.0); MONO # 0.9 10^3/uL (0.0-0.8); MONO % 10.2 % (0.0-5.0); NEUTROPHILS # 5.3 10^3/uL (1.8-7.7); NEUTROPHILS % 60.4 % (36.0-66.0); PLATELET COUNT, AUTOMATED 214 10^3/uL (150-450); RED BLOOD COUNT 4.39 10^6/uL (4.00-5.40); WHITE BLOOD COUNT 8.8 10^3/uL (4.0-10.0)
[2018-11-16 13:27] LABS: APPEARANCE, URINE HAZY (CLEAR); BACTERIA, URINE AUTO NEGATIVE (NEGATIVE); BILIRUBIN, URINE AUTO NEGATIVE (NEGATIVE); BLOOD, URINE BLOOD NEGATIVE (NEGATIVE); CALCIUM OXALATE CRYSTALS MODERATE; COLOR, URINE YELLOW (YELLOW); GLUCOSE, URINE (UA) AUTO NEGATIVE (NEGATIVE); KETONE, URINE AUTO 2+ mg/dL (NEGATIVE); LEUKOCYTE ESTERASE, URINE AUTO 1+ (NEGATIVE); MUCUS, URINE LARGE (NEGATIVE); NITRITE, URINE AUTO NEGATIVE (NEGATIVE); PROTEIN, URINE AUTO NEGATIVE (NEGATIVE); RBC, URINE AUTO 9 /HPF (0-3); SPECIFIC GRAVITY URINE AUTO 1.023 (1.002-1.035); SQUAMOUS EPITHELIAL CELL UR AU 2 /HPF (0-6); UROBILINOGEN, URINE AUTO 0.2 mg/dL (0.0-2.0); WBC, URINE AUTO 26 /HPF (0-3)
== END ==
LOC: M WUC 09:53
PROVIDERS: ATTEND Nurse Practitioner Family
DX: N39.0 Urinary tract infection, site not specified (principal)

== ENCOUNTER → 2018-12-06 | Outpatient (REF) | payer BC ==
[2018-12-06 12:54] LABS: APPEARANCE, URINE CLEAR (CLEAR); BACTERIA, URINE AUTO NEGATIVE (NEGATIVE); BILIRUBIN, URINE AUTO NEGATIVE (NEGATIVE); BLOOD, URINE BLOOD NEGATIVE (NEGATIVE); CALCIUM OXALATE CRYSTALS LARGE; COLOR, URINE AMBER (YELLOW); GLUCOSE, URINE (UA) AUTO NEGATIVE (NEGATIVE); KETONE, URINE AUTO 1+ mg/dL (NEGATIVE); LEUKOCYTE ESTERASE, URINE AUTO 1+ (NEGATIVE); MUCUS, URINE LARGE (NEGATIVE); NITRITE, URINE AUTO NEGATIVE (NEGATIVE); PROTEIN, URINE AUTO 1+ mg/dL (NEGATIVE); RBC, URINE AUTO 2 /HPF (0-3); SPECIFIC GRAVITY URINE AUTO 1.021 (1.002-1.035); SQUAMOUS EPITHELIAL CELL UR AU 2 /HPF (0-6); WBC, URINE AUTO 19 /HPF (0-3)
== END ==
LOC: M LAB REF 12:21
PROVIDERS: ATTEND Nurse Practitioner Family
DX: N39.0 Urinary tract infection, site not specified (principal)

== ENCOUNTER → 2018-12-11 | Outpatient (CLI) | payer BC ==
[~2018-12-11] MED LIST changes: +MISO200T56 PO; +ONDA4TAB6 PO; +SUCR1TAB56 PO
--- NOTE | 2018-12-12 05:22 | REP ---
Clinical: Urinary tract infection. Technique: Real time elam scale ultrasound examination using curved array transducer. Findings: Bilateral kidneys are normal in contour, size, echogenicity, and reniform shape without hydronephrosis, nephrolithiasis, cystic or renal mass lesion. No perinephric fluid collection. Right kidney measures 11.0 x 6.5 x 4.9 cm. Left kidney measures 9.8 x 6.0 x 5.3 cm. Bladder is under distended. Impression: Normal renal ultrasound. Electronically Signed by Paolo Floyd MD 12/12/2018 05:14 A
== END ==
LOC: M RAD 11:44
PROVIDERS: ATTEND Nurse Practitioner Family
DX: N39.0 Urinary tract infection, site not specified (principal)

== ENCOUNTER 2018-12-14 11:36 | Emergency (ER) | payer BC ==
[~2018-12-14] VITALS: Ht 149.9 cm; Wt 55.5 kg
[~2018-12-14 11:36] MED LIST changes: -MISO200T56 PO; -ONDA4TAB6 PO; -SUCR1TAB56 PO
[2018-12-14] MEDS ORDERED: MISO200T56 PO (11:51)
[2018-12-14] MEDS ORDERED: ONDA4TAB6 PO (11:51)
[2018-12-14] MEDS ORDERED: SUCR1TAB56 PO (11:51)
[2018-12-14] MEDS ORDERED: OMEP40CA2 PO (11:51)
[2018-12-14 13:03] LABS: BASO % 0.6 % (0.0-1.0); EOS # 0.2 10^3/uL (0.0-0.50); EOS % 2.5 % (0.0-3.0); HEMATOCRIT 40.1 % (36.0-47.0); HEMOGLOBIN 12.6 g/dl (12.0-15.5); LYMPH % 28.9 % (24.0-44.0); MEAN CORPUSCULAR HEMOGLOBIN 28.1 pg (27.0-33.0); MEAN CORPUSCULAR HGB CONC 31.4 g/dl (32.0-36.5); MEAN CORPUSCULAR VOLUME 89.5 fl (80.0-96.0); MONO # 0.5 10^3/uL (0.0-0.8); MONO % 7.1 % (0.0-5.0); NEUTROPHILS # 4.2 10^3/uL (1.8-7.7); NEUTROPHILS % 60.6 % (36.0-66.0); PLATELET COUNT, AUTOMATED 197 10^3/uL (150-450); RED BLOOD COUNT 4.48 10^6/uL (4.00-5.40); WHITE BLOOD COUNT 6.9 10^3/uL (4.0-10.0)
[2018-12-14 13:28] LABS: BLOOD UREA NITROGEN 7 MG/DL (7-18); CALCIUM LEVEL 8.9 MG/DL (8.5-10.1); CARBON DIOXIDE LEVEL 26 MEQ/L (21-32); CHLORIDE LEVEL 105 MEQ/L (98-107); GLOMERULAR FILTRATION RATE > 60.0 (>58); GLUCOSE, FASTING 68 MG/DL (70-100); POTASSIUM SERUM 3.7 MEQ/L (3.5-5.1); SODIUM LEVEL 142 MEQ/L (136-145)
[2018-12-14] MEDS ORDERED: ISOVUE-370 76% 125ML VIAL (Q9967 PER ML) As Ordered ONE (14:02)
[2018-12-14] MEDS ORDERED: NS 1,000 ML IV ONE (14:15)
--- NOTE | 2018-12-14 16:44 | REP ---
CT ABDOMEN AND PELVIS WITH AND WITHOUT IV CONTRAST (CT UROGRAM): CT abdomen and pelvis performed prior to and following the intravenous administration of 100 mL of Isovue-370. Sagittal, coronal and 3D MIP reconstruction images are performed. Visualized lung bases demonstrate no infiltrate. Precontrast images show no renal, ureteral or bladder calculus. No gallstones are seen. The liver, spleen, adrenals, pancreas and kidneys appear normal. There is no hydronephrosis. No renal mass is seen. Ureters demonstrate no abnormality. Abdominal aorta is normal in caliber with no aneurysm. I see no adenopathy. There is no free air. A tiny amount of free fluid in the pelvis is likely physiologic. Patient has had prior gastric surgery. The patient also appears to have had a hysterectomy. No pelvic mass is seen. There is no evidence of appendicitis. There is no anterior abdominal wall defect. IMPRESSION: No renal or ureteral calculus and no hydroureteronephrosis. No renal mass. No acute abnormalities. Tiny amount of free fluid in the pelvis is likely physiologic in nature. Electronically Signed by Brannon Schaeffer MD 12/14/2018 08:00 P
[2018-12-14 16:54] VITALS: BP 139/97
== END 2018-12-14 16:56 | disposition home or self-care (01) ==
LOC: M ED 11:36
DX: N39.0 Urinary tract infection, site not specified (principal); R31.9 Hematuria, unspecified; N39.3 Stress incontinence (female) (male); Z86.19 Personal history of other infectious and parasitic diseases; M54.5 Low back pain; E78.5 Hyperlipidemia, unspecified; J45.909 Unspecified asthma, uncomplicated; G51.0 Bell's palsy; Z98.84 Bariatric surgery status; Z98.1 Arthrodesis status; Z87.891 Personal history of nicotine dependence; Z91.018 Allergy to other foods; Z79.899 Other long term (current) drug therapy; Z87.440 Personal history of urinary (tract) infections
CPT/HCPCS: 36415; 74178; 80048; 81001; 85025; 87086; 96360; 99284; Q9967

== ENCOUNTER → 2018-12-17 | Outpatient (REF) | payer BC, OTHER ==
[~2018-12-17] MED LIST changes: +MISO200T56 PO; +ONDA4TAB6 PO; +SUCR1TAB56 PO
[2018-12-17 15:30] LABS: APPEARANCE, URINE CLOUDY (CLEAR); BACTERIA, URINE AUTO 1+ (NEGATIVE); BILIRUBIN, URINE AUTO NEGATIVE (NEGATIVE); BLOOD, URINE BLOOD 1+ (NEGATIVE); CALCIUM OXALATE CRYSTALS LARGE; COLOR, URINE AMBER (YELLOW); GLUCOSE, URINE (UA) AUTO NEGATIVE (NEGATIVE); KETONE, URINE AUTO 1+ mg/dL (NEGATIVE); LEUKOCYTE ESTERASE, URINE AUTO 2+ (NEGATIVE); MUCUS, URINE LARGE (NEGATIVE); NITRITE, URINE AUTO NEGATIVE (NEGATIVE); PROTEIN, URINE AUTO NEGATIVE (NEGATIVE); RBC, URINE AUTO 4 /HPF (0-3); SPECIFIC GRAVITY URINE AUTO 1.019 (1.002-1.035); SQUAMOUS EPITHELIAL CELL UR AU 15 /HPF (0-6); TRANSITIONAL EPITHELIAL AUTO <1 /HPF; WBC, URINE AUTO 53 /HPF (0-3)
== END ==
LOC: M SMT 13:01
PROVIDERS: ATTEND Nurse Practitioner Family
DX: R31.0 Gross hematuria (principal)

== ENCOUNTER → 2018-12-27 | Outpatient (CLI) | payer BC ==
--- NOTE | 2018-12-31 17:03 | SLEEPHOME ---
DATE OF PROCEDURE: 12/27/2018 ORDERED BY: Herman Minor PA-C Diagnostic home sleep testing was performed due to concern for the obstructive sleep apnea syndrome. For testing, a nocturnal T3 respiratory monitoring device was used. Continuous record was made of pulse, oxygen saturation, airflow, chest, abdominal strain and body position. 10 hours and 59 minutes of data were reviewed. There were 6 hours and 27 minutes marked as time in bed. During the interval marked time in bed, there were 43 respiratory events identified of 10 seconds in duration or greater for a respiratory event index of 6.7. The events were primarily obstructive but 16 of the 38 were central and mixed. Baseline pulse rate 69 beats per minute, pulse rate ranged from 53-99. Baseline saturation is 94%. Saturations fell to 86% with an index of 2. Testing was performed in both the supine and nonsupine positions. IMPRESSION: Abnormal home sleep testing with repetitive respiratory events and oxygen desaturations to 86% with a respiratory event index of 6.7 is consistent with the obstructive sleep apnea syndrome. RECOMMENDATIONS: The patient should be encouraged to undergo a formal sleep evaluation and in laboratory pressure titration.
== END ==
LOC: M SLEEP HO 09:55
PROVIDERS: ATTEND Physician Assistant
DX: G47.33 Obstructive sleep apnea (adult) (pediatric) (principal)

== ENCOUNTER → 2019-01-17 | Outpatient (CLI) | payer BC ==
--- NOTE | 2019-01-23 14:54 | SLEEPCENT ---
DATE OF PROCEDURE: 01/17/2019 ORDERING PROVIDER: LUCERO Diehl Nocturnal polysomnography was performed for the titration of pressure therapy in this patient with clinical diagnosis of obstructive sleep apnea syndrome confirmed by home testing revealing a respiratory event index of 6.7. For testing, a ResMed Quattro full face mask of small size was used, 4 cm of pressure were applied circuit, and the lights were extinguished. 7 hours and 20 minutes of data were reviewed. There were 235 minutes of sleep identified. Sleep latency was prolonged at 59 minutes. Rapid eye movement (REM) sleep was not achieved. Sleep architecture was fair but progression was lacking. Overall sleep efficiency was 76.9%. The electrocardiogram showed a sinus rhythm with an average heart rate of 60 beats per minute. Electroencephalogram (EEG) showed fairly normal waveforms for awake and sleep. There were some artifactual changes but no focal events identified. Respiratory events were fully palliated with C-PAP at a pressure of +8. Some limb activity was noted. There were two trains of 30 events. Limb movement arousal index of 10.9. IMPRESSION Obstructive sleep apnea syndrome (G47.33). RECOMMENDATIONS: Nightly use of pressure therapy 8 cm of water.
== END ==
LOC: M SLEEP 19:27
PROVIDERS: ATTEND Physician Assistant
DX: G47.33 Obstructive sleep apnea (adult) (pediatric) (principal)

== ENCOUNTER → 2019-04-27 | Outpatient (CLI) | payer BC ==
[2019-04-27 17:08] LABS: BASO # 0.1 10^3/uL (0.0-0.2); BASO % 1.1 % (0.0-1.0); EOS # 0.2 10^3/uL (0.0-0.50); EOS % 3.8 % (0.0-3.0); HEMATOCRIT 39.6 % (36.0-47.0); HEMOGLOBIN 12.8 g/dl (12.0-15.5); LYMPH # 2.4 10^3/uL (1.5-4.5); MEAN CORPUSCULAR HEMOGLOBIN 29.2 pg (27.0-33.0); MEAN CORPUSCULAR HGB CONC 32.3 g/dl (32.0-36.5); MEAN CORPUSCULAR VOLUME 90.4 fl (80.0-96.0); MONO # 0.5 10^3/uL (0.0-0.8); MONO % 8.8 % (0.0-5.0); NEUTROPHILS # 2.1 10^3/uL (1.8-7.7); NEUTROPHILS % 40.1 % (36.0-66.0); PLATELET COUNT, AUTOMATED 216 10^3/uL (150-450); RED BLOOD COUNT 4.38 10^6/uL (4.00-5.40); WHITE BLOOD COUNT 5.2 10^3/uL (4.0-10.0)
[2019-04-27 17:10] LABS: HEMATOCRIT 39.6 % (36.0-47.0)
[2019-04-27 17:28] LABS: HEMOGLOBIN A1c 5.4 %
[2019-04-27 19:04] LABS: ALBUMIN 3.9 GM/DL (3.2-5.2); ALT/SGPT 36 U/L (12-78); BILIRUBIN,TOTAL 1.1 MG/DL (0.2-1.0); BLOOD UREA NITROGEN 10 MG/DL (7-18); CALCIUM LEVEL 8.9 MG/DL (8.5-10.1); CARBON DIOXIDE LEVEL 30 MEQ/L (21-32); CHLORIDE LEVEL 106 MEQ/L (98-107); CREATININE FOR GFR 0.51 MG/DL (0.55-1.30); FERRITIN 35 NG/ML (8-252); GLOMERULAR FILTRATION RATE > 60.0 (>58); GLUCOSE, FASTING 75 MG/DL (70-100); IRON (FE) 130 UG/DL (50-170); PERCENT SATURATION 42.8 % (13.2-45.0); PHOSPHORUS LEVEL 4.3 MG/DL (2.5-4.9); POTASSIUM SERUM 4.8 MEQ/L (3.5-5.1); SODIUM LEVEL 140 MEQ/L (136-145); TOTAL IRON BINDING CAPACITY 304 UG/DL (250-450); TOTAL PROTEIN 7.2 GM/DL (6.4-8.2)
[2019-04-29 12:00] LABS: TOTAL 25(OH) VITAMIN D 33.1 NG/ML (30.0-100.0); VITAMIN B12 LEVEL 876 PG/ML (247-911)
== END ==
LOC: M WUC 11:09
PROVIDERS: ATTEND Physician Assistant Surgical
DX: K91.2 Postsurgical malabsorption, not elsewhere classified (principal); E55.9 Vitamin D deficiency, unspecified; Z98.84 Bariatric surgery status